=== PATIENT | female | born 1990 | race Caucasian/White ===

== ENCOUNTER 2017-02-24 10:57 | Outpatient (CLI) | payer MEDICAID, OTHER | END 2017-02-24 13:05 | disposition home or self-care (01) | LOC: OBT 10:57 → L-D 11:03 → OBT 13:05 | DX: O26.893 Other specified pregnancy related conditions, third trimester (principal); R07.9 Chest pain, unspecified; R06.02 Shortness of breath; Z3A.30 30 weeks gestation of pregnancy | CPT/HCPCS: 76818 ==

== ENCOUNTER 2017-02-24 13:07 | Emergency (ER) | payer OTHER, MEDICAID ==
[2017-02-24] MEDS: ACETAMINOPHEN 325 MG TAB PO (17:58)
== END 2017-02-24 19:57 | disposition home or self-care (01) ==
LOC: FTE 13:07
DX: O99.513 Diseases of the respiratory system complicating pregnancy, third trimester (principal); R07.89 Other chest pain; R06.02 Shortness of breath; Z3A.30 30 weeks gestation of pregnancy
CPT/HCPCS: 93005; 93970; 99284-25

== ENCOUNTER 2017-04-28 09:24 | Outpatient (CLI) | payer OTHER, MEDICAID | END 2017-04-28 13:16 | disposition home or self-care (01) | LOC: OBT 09:24 → L-D 09:25 → OBT 13:16 | DX: O62.9 Abnormality of forces of labor, unspecified (principal); Z3A.39 39 weeks gestation of pregnancy | CPT/HCPCS: 76818 ==

== ENCOUNTER 2017-05-04 07:37 | Inpatient (IN) | payer OTHER ==
[2017-05-04] MEDS ORDERED: CARBOPROST 250 MCG INJ IM (10:00)
[2017-05-04] MEDS ORDERED: OXYTOCIN 30 UNITS/LR 500 ML IV ×2 (10:00)
[2017-05-04] MEDS ORDERED: METHYLERGONOVINE 0.2 MG INJ IM (10:00)
[2017-05-04] MEDS ORDERED: BUTORPHANOL 2 MG INJ IV (10:00)
[2017-05-04] MEDS ORDERED: IBUPROFEN 600 MG TAB PO (10:00)
[2017-05-04] MEDS ORDERED: LIDOCAINE 1% (MPF) 30 ML INJ INJ (10:00)
[2017-05-04] MEDS ORDERED: MISOPROSTOL 200 MCG TAB PR (10:00)
[2017-05-04 10:53] LABS: ADD MAN DIFF? NO
[2017-05-04 11:09] LABS: BASOPHILS % 0.1 % (0.0-2.0); EOSINOPHILS # 0.1 10^3/ul (0.0-0.5); EOSINOPHILS % 1.2 % (0.0-7.0); HEMATOCRIT 37.2 % (37.0-47.0); HEMOGLOBIN 12.2 g/dl (12.0-16.0); LYMPHOCYTES # 1.9 10^3/ul (0.8-2.9); LYMPHOCYTES % 25.5 % (15.0-51.0); MEAN CORPUSCULAR HEMOGLOBIN 29.5 pg (29.0-33.0); MEAN CORPUSCULAR HGB CONC 32.8 g/dl (32.0-37.0); MEAN CORPUSCULAR VOLUME 89.9 fl (82.0-101.0); MEAN PLATELET VOLUME 9.5 fl (7.4-10.4); MONOCYTE # 0.4 10^3/ul (0.3-0.9); MONOCYTES % 5.5 % (0.0-11.0); NEUTROPHIL # 5.1 10^3/ul (1.6-7.5); NEUTROPHILS % 67.4 % (39.0-77.0); PLATELET COUNT 213 10^3/UL (140-415); RED BLOOD COUNT 4.14 10^6/ul (4.20-5.40); RED CELL DISTRIBUTION WIDTH 13.2 % (11.5-14.5)
[2017-05-04 11:09] LABS: WHITE BLOOD COUNT 7.5 10^3/ul (4.8-10.8)
[2017-05-04 11:15] LABS: INR 0.95; PROTIME 12.8 Sec (11.9-14.9)
[2017-05-04 11:16] LABS: PARTIAL THROMBOPLASTIN TIME 27.3 Sec (25.0-35.0)
[2017-05-04 12:51] LABS: HEPATITIS B SURFACE ANTIGEN NEGATIVE (NEGATIVE)
[2017-05-04] MEDS: OXYTOCIN 30 UNITS/LR 500 ML IV (18:10)
[2017-05-04] MEDS: LACTATED RINGER'S 1,000 ML IV ×2 (18:11→20:33)
[2017-05-04] MEDS ORDERED: FENTAnyl 2MCG/ML-ROPIV 0.2% 100 ML (20:34)
[2017-05-04] MEDS ORDERED: NALOXONE (0.4 MG/ML) INJ IV (21:00)
[2017-05-04 22:41] LABS: RAPID PLASMA REAGIN NONREACTIVE (NR)
[2017-05-05] MEDS: FENTAnyl 2MCG/ML-ROPIV 0.2% 100 ML BAG EPI ×3 (01:36→13:02)
[2017-05-05] MEDS: LACTATED RINGER'S 1,000 ML IV ×2 (01:45→07:02)
[2017-05-05] MEDS: MINERAL OIL LIGHT 10 ML VIAL TOP (08:00)
[2017-05-05] MEDS: OXYTOCIN 30 UNITS/LR 500 ML IV (16:50)
[2017-05-05] MEDS ORDERED: MISOPROSTOL 200 MCG TAB PR (17:30)
[2017-05-05] MEDS ORDERED: DIBUCAINE 1% 30 GM OINT PR (17:30)
[2017-05-05] MEDS ORDERED: METHYLERGONOVINE 0.2 MG INJ IM (17:30)
[2017-05-05] MEDS ORDERED: OXYTOCIN 30 UNITS/LR 500 ML IV (17:30)
[2017-05-05] MEDS ORDERED: HYDROCODONE/APAP (5/325) TAB PO ×2 (17:30)
[2017-05-05] MEDS ORDERED: CARBOPROST 250 MCG INJ IM (17:30)
[2017-05-05] MEDS ORDERED: ZOLPIDEM 5 MG TAB PO (17:30)
[2017-05-05] MEDS: IBUPROFEN 600 MG TAB PO ×2 (18:34→23:58)
[2017-05-05] MEDS: LANOLIN 7 GM TUBE TOP (18:35)
[2017-05-05] MEDS: BENZOCAINE 20% 56 ML SPRAY TOP (18:35)
[2017-05-05] MEDS: CEPHALEXIN 500 MG CAP PO ×2 (18:35→23:58)
[2017-05-05] MEDS: WITCH HAZEL/GLYCERIN PAD PR (18:35)
[2017-05-05] MEDS: LACTATED RINGER'S 1,000 ML IV* (19:58)
[2017-05-05] MEDS: MAGNESIUM HYDROXIDE 30ML CUP PO (21:19)
[2017-05-05] MEDS: SENNA/DOCUSATE NA (8.6MG/50MG) TAB PO (21:19)
[2017-05-06] MEDS: LACTATED RINGER'S 1,000 ML IV* (01:21)
[2017-05-06] MEDS: IBUPROFEN 600 MG TAB PO ×3 (05:35→17:23)
[2017-05-06] MEDS: CEPHALEXIN 500 MG CAP PO ×3 (05:35→17:23)
[2017-05-06] MEDS: MAGNESIUM HYDROXIDE 30ML CUP PO ×2 (09:46→21:00)
[2017-05-06] MEDS: SENNA/DOCUSATE NA (8.6MG/50MG) TAB PO ×2 (09:46→21:00)
[2017-05-06 10:48] LABS: ADD MAN DIFF? NO
[2017-05-06 10:49] LABS: BASOPHILS % 0.2 % (0.0-2.0); EOSINOPHILS # 0.2 10^3/ul (0.0-0.5); HEMATOCRIT 32.4 % (37.0-47.0); HEMOGLOBIN 10.7 g/dl (12.0-16.0); LYMPHOCYTES # 2.4 10^3/ul (0.8-2.9); LYMPHOCYTES % 20.5 % (15.0-51.0); MEAN CORPUSCULAR HEMOGLOBIN 29.4 pg (29.0-33.0); MEAN PLATELET VOLUME 9.5 fl (7.4-10.4); MONOCYTE # 0.6 10^3/ul (0.3-0.9); MONOCYTES % 5.4 % (0.0-11.0); NEUTROPHIL # 8.3 10^3/ul (1.6-7.5); NEUTROPHILS % 71.6 % (39.0-77.0); PLATELET COUNT 196 10^3/UL (140-415); RED BLOOD COUNT 3.64 10^6/ul (4.20-5.40); RED CELL DISTRIBUTION WIDTH 13.4 % (11.5-14.5)
[2017-05-06 10:49] LABS: WHITE BLOOD COUNT 11.6 10^3/ul (4.8-10.8)
[2017-05-07] MEDS: CEPHALEXIN 500 MG CAP PO ×3 (00:38→11:24)
[2017-05-07] MEDS: IBUPROFEN 600 MG TAB PO ×3 (00:38→11:24)
[2017-05-07] MEDS ORDERED: VARICELLA VACCINE LIVE/PF 1,350 UNIT/0.5 ML ML SC* (09:00)
[2017-05-07] MEDS: SENNA/DOCUSATE NA (8.6MG/50MG) TAB PO (09:00)
[2017-05-07] MEDS: MAGNESIUM HYDROXIDE 30ML CUP PO (09:00)
[2017-05-07] MEDS ORDERED: MEASLES,MUMPS,RUBELLA VACCINE INJ SC* (09:00)
[2017-05-07] MEDS: DIPHTH/TET/ACEL PERTUSS (ADULT) 0.5 ML VIAL IM* (11:39)
== END 2017-05-07 14:14 | disposition home or self-care (01) | DRG 775 ==
LOC: OBT 07:37 → L-D 07:38 → PP1 05-05 18:11 → OBT 09:39 → L-D 09:30
PROVIDERS: Obstetrics & Gynecology
PROC: 10E0XZZ Delivery of Products of Conception, External Approach (ICD-10-PCS; principal; 2017-05-04)
PROC: 0HQ9XZZ Repair Perineum Skin, External Approach (ICD-10-PCS; 2017-05-05)
PROC: 3E033VJ Introduction of Other Hormone into Peripheral Vein, Percutaneous Approach (ICD-10-PCS; 2017-05-05)
DX: O70.0 First degree perineal laceration during delivery (principal); O69.81X0 Labor and delivery complicated by cord around neck, without compression, not applicable or unspecified; Z3A.38 38 weeks gestation of pregnancy; Z37.0 Single live birth
CPT/HCPCS: 62319; 76815; 76818; 85025; 85610; 85730; 86592; 86850; 86900; 86901; 87340; 90715

== ENCOUNTER → 2018-10-30 | Emergency (ER) | payer MEDICAID, OTHER | END | disposition home or self-care (01) | LOC: FTE 08:38 | DX: H00.014 Hordeolum externum left upper eyelid (principal) | CPT/HCPCS: 99282; Z7502 ==